=== PATIENT | female | born 1960 | race Caucasian/White ===

== ENCOUNTER 2018-11-11 11:50 | Emergency (ER) | payer MEDICAID ==
[~2018-11-11] VITALS: Ht 162.6 cm; Wt 45.5 kg
[~2018-11-11 11:50] MED LIST: ATIVAN1 MG PO; COZAAR50 MG PO; DILAUDID2 MG PO; LIPITOR10 MG PO; METOPROLOL TART25 MG PO; PARAFON FORTE500 MG PO; SPIRIVA18 MCG INH; VENTOLIN HFA18 GM INH
[2018-11-11 12:05] VITALS: BP 155/95; Ht 162.6 cm; Wt 45.5 kg
[2018-11-11] MEDS ORDERED: [UNRECOGNIZED DRUG - REMARK] (12:07)
[2018-11-11] MEDS ORDERED: PLAVIX75 MG PO (12:08)
[2018-11-11 12:35] LABS: BASOPHILS 0.9 % (0-2); EOSINOPHILS 0.9 % (0-7); HEMATOCRIT 38.6 % (36.0-48.0); HEMOGLOBIN 13.1 g/dL (12-16); IMMATURE GRANULOCYTES 0.2 % (0-5); LYMPHOCYTES 42.2 % (15-50); MCH 31.9 pg (26.0-34.0); MCHC 33.9 g/dL (31.0-37.0); MCV 93.9 fL (80.0-100.0); MEAN PLATELET VOLUME 8.9 fL (7.4-10.4); MONOCYTES 13.3 % (2-11); NEUTROPHILS 42.5 % (40-80); PLATELET COUNT 305 10x3/uL (130-400); RBC 4.11 10x6/uL (4.00-5.40); RDW 14.9 % (11.5-14.5); WBC 5.4 10x3/uL (4.8-10.8)
[2018-11-11 12:51] LABS: INR 1.1 (0.85-1.17); PROTIME 13.7 SECONDS (11.6-15.0)
[2018-11-11 12:54] LABS: ALBUMIN 3.4 g/dL (3.4-5.0); ALKALINE PHOSPHATASE 67 U/L (46-116); ALT (SGPT) 17 U/L (10-68); BILIRUBIN - TOTAL 0.24 mg/dL (0.2-1.3); CALC OSMOLALITY 281 mosm/kg (275-300); CALCIUM 10.1 mg/dL (8.5-10.1); CARBON DIOXIDE 26.7 mmol/L (21.0-32.0); CHLORIDE - SERUM 105 mmol/L (98-107); CREATININE - SERUM 0.6 mg/dL (0.6-1.3); GLUCOSE 104 mg/dL (74-106); POTASSIUM - SERUM 3.2 mmol/L (3.5-5.1); PROTEIN - SERUM 7.7 g/dL (6.4-8.2); SODIUM 141 mmol/L (136-145); UREA NITROGEN 16 mg/dL (7-18); eGFR NON AFRICAN AMERICAN > 90 mL/min (90-120)
[2018-11-11 13:04] LABS: CKMB 0.7 U/L (0.0-3.6); CREATINE KINASE 45 UL (21-215); MAGNESIUM - SERUM 2.1 mg/dL (1.8-2.4); TROPONIN-I < 0.017 ng/mL (0.000-0.060)
== END 2018-11-11 13:50 | disposition home or self-care (01) ==
LOC: D.ER 11:50
PROVIDERS: Emergency Medicine
DX: R07.89 Other chest pain (principal)